=== PATIENT | male | born 1960 | race Caucasian/White ===

== ENCOUNTER 2021-01-03 10:31 | Outpatient (CLI) | payer OTHER | END 2021-01-03 10:36 | disposition home or self-care (01) | LOC: RAD 10:31 | PROVIDERS: ATTEND Orthopaedic Surgery | DX: M25.561 Pain in right knee (principal); M25.562 Pain in left knee ==

== ENCOUNTER 2021-01-12 09:33 | Outpatient (CLI) | payer OTHER | END 2021-01-12 09:47 | disposition home or self-care (01) | LOC: MRI 09:33 | PROVIDERS: ATTEND Orthopaedic Surgery | DX: M25.562 Pain in left knee (principal) | CPT/HCPCS: 73718; 73721 ==